=== PATIENT | female | born 1990 | race Two or more races ===

== ENCOUNTER 2017-12-21 06:09 | Emergency (ER) | payer SELFPAY ==
[~2017-12-21] VITALS: Ht 162.6 cm; Wt 57.2 kg
[2017-12-21 06:14] VITALS: BP 126/61; Ht 162.6 cm; Wt 57.2 kg
== END 2017-12-21 06:54 | disposition home or self-care (01) ==
LOC: ED 06:09
DX: H92.22 Otorrhagia, left ear (principal); R51 Headache

== ENCOUNTER 2018-07-01 09:03 | Emergency (ER) | payer OTHER ==
[~2018-07-01] VITALS: Ht 160 cm; Wt 59.4 kg
[2018-07-01 09:22] VITALS: Ht 160 cm; Wt 59.4 kg
[2018-07-01 10:10] VITALS: BP 134/82
[2018-07-01 10:13] LABS: BASOPHIL % 0.4 % (0-2); PLATELET COUNT 392 x10^3mcL (130-400); RED CELL DISTRIBUTION WIDTH 13.2 % (11.5-14.5)
[2018-07-01 10:23] LABS: CALCIUM 9.5 mg/dL (8.5-10.1); CARBON DIOXIDE 22.2 mmol/L (21-32); CHLORIDE SERUM 104 mmol/L (98-107); CREATININE SERUM 0.7 mg/dL (0.6-1.0); GFR1 > 60 mL/min; GLUCOSE SERUM 113 mg/dL (74-106); POTASSIUM SERUM 4.1 mmol/L (3.5-5.1); SODIUM SERUM 140 mmol/L (136-145)
[2018-07-01 10:27] LABS: ALBUMIN 4.4 g/dL (3.4-5.0); ALKALINE PHOSPHATASE 76 U/L (46-116); ALT/SGPT 40 U/L (14-59); AMYLASE 49 U/L (25-115); AST/SGOT 24 U/L (15-37); BILIRUBIN TOTAL 1.51 mg/dL (0.20-1.00); LIPASE 111 IU/L (73-393)
[2018-07-01 10:28] LABS: TOTAL PROTEIN, SERUM 8.4 g/dL (6.4-8.2)
== END 2018-07-01 10:30 | disposition home or self-care (01) ==
LOC: ED 09:03
PROVIDERS: Emergency Medicine
DX: K52.9 Noninfective gastroenteritis and colitis, unspecified (principal); Z88.5 Allergy status to narcotic agent; Z98.890 Other specified postprocedural states
CPT/HCPCS: J1885; J2405; J7030

== ENCOUNTER 2018-11-19 00:02 | Inpatient (IN) | payer OTHER ==
[~2018-11-19] VITALS: Ht 162.6 cm; Wt 60.0 kg
--- NOTE | 2018-11-19 00:26 | NUR ---
PT CAME TO ED CO RIGHT LOWER ABD PAIN. PT STS THE PAIN STARTED THIS MORNING, BUT INCREASED PRIOR TO ARRIVAL. SLIGHT PAIN UPON PALATION IN RIGHT LOWER QUADRANT, NO PAIN IN OTHER QUADRANTS. BOWEL SOUNDS ACTIVE IN ALL FOUR QUADRANTS. BOYFRIEND AT BEDSIDE. NO S/S OF DISTRESS. RESP E/U. AWAITING MSE. WILL CONTINUE TO MONITOR.
--- NOTE | 2018-11-19 00:52 | NUR ---
PT MEDICATED PER ORDER. PT VERBALIZED UNDERSTANDING OF MEDICATION TEACHING. SEE EMAR FOR DETAILS.
[2018-11-19 00:58] LABS: microscopic required? NO
[2018-11-19 01:07] LABS: urine erythrocyte NEGATIVE (NEGATIVE)
[2018-11-19 01:35] LABS: BASOPHIL % 0.1 % (0-2); PLATELET COUNT 345 x10^3mcL (130-400); RED CELL DISTRIBUTION WIDTH 12.6 % (11.5-14.5)
--- NOTE | 2018-11-19 02:00 | NUR ---
PT TAKEN OFF THE FLOOR TO CT VIA [place]. PT IN NO DISTRESS, RESP E/U.
--- NOTE | 2018-11-19 02:07 | NUR ---
PT RETURN[place].
--- NOTE | 2018-11-19 02:18 | NUR ---
PT LAYING ON GURNEY IN POSITION OF COMFORT. PT STS HER PAIN IS RELIEVED WHEN IN SITTING POSITION. BOY FRIEND AT [facility]. WILL CONTINUE TO MONITOR.
[2018-11-19 02:22] LABS: ALBUMIN 4.1 g/dL (3.4-5.0); ALKALINE PHOSPHATASE 77 U/L (46-116); AST/SGOT 13 U/L (15-37); CALCIUM 9.2 mg/dL (8.5-10.1); CHLORIDE SERUM 102 mmol/L (98-107); CREATININE SERUM 0.8 mg/dL (0.6-1.0); GFR1 > 60 mL/min; GLUCOSE SERUM 103 mg/dL (74-106); LIPASE 62 IU/L (73-393); SODIUM SERUM 137 mmol/L (136-145); TOTAL PROTEIN, SERUM 7.5 g/dL (6.4-8.2)
[2018-11-19 02:55] LABS: ALT/SGPT 22 U/L (14-59)
--- NOTE | 2018-11-19 03:25 | NUR ---
PT MEDICATED PER ORDER. PT VERBALIZED UNDERSTANDING OF MEDICATION TEACHING. SEE EMAR FOR DETAILS.
--- NOTE | 2018-11-19 03:40 | NUR ---
REPORT GIVEN TO YAZMIN SHARMA TO ASSUME CARE OF PT.
--- NOTE | 2018-11-19 04:05 | NUR ---
RECEIVED PT FROM ED, VIA WHEELCHAIR. PT AMBULATORY TO BED WITHOUT ISSUE, STRONG AND STEADY GAIT NOTED. MILD DISTRESS OBSERVED, PT ADMITS TO RLQ ABD PAIN WITH MOVEMENT, ONCE LAYING IN BED, DENIES PAIN AND REFUSED PAIN MED AT THIS TIME. ABD SOFT AND FLAT WITH ACTIVE BOWEL SOUNDS, DENIES N/V AT THIS TIME. LAST BM YESTERDAY, REGULAR AND FORMED. AA/OX4, ABLE TO MAKE NEEDS KNOWN. MED-SURG, NO TELE, NO CP. PULSES PRESENT AND EQUAL THROUGHOUT, NO EDEMA. BREATHING ON RA, EVEN AND UNLABORED, NO SOB OR DYSPNEA, LUNGS CTA, O2 SAT 99% VOIDS URINE FREELY WITH BRP. AMBULATORY AND ABLE TO REPOSITION SELF IN BED. SKIN CDI. IV TO LAC IN PLACE, DRY, PATENT, INTACT, NO PAIN, REDNESS OR SWELLING NOTED. IVF FROM ED CONTINUED, NS AT 150 ML/HR AND FIRST BAG OF K RIDER, 20 MEQ, INFUSING WELL. PT MADE AWARE FOR NEED TO BE NPO AT THIS TIME FOR POSSIBLE SURGERY LATER TODAY, PT AGREED AND VERBALIZED UNDERSTANDING. ORIENTED PT TO ROOM AND CALL LIGHT. COMFORT AND SAFETY PRECAUTIONS INITIATED. CALL LIGHT WITHIN REACH. WILL CONTINUE TO MONITOR
--- NOTE | 2018-11-19 04:09 | NUR ---
PT ADMITTED OT MED SURG FLOOR. PT TRANSPORTED TO FLOOR BY EMT. NO S/S OF DISTRESS. RESP E/U. RN AWARE OF MEDICATIONS STILL INFUSING ON TRANSFER. IV SITE PATENT. PT DENIES PAIN OR DISCOMFORT. NO S/S OF INFILTRATION.
[2018-11-19 04:11] LABS: CHOLESTEROL/HDL RATIO 2.6; PHOSPHOROUS 2.3 mg/dL (2.5-4.9)
[2018-11-19 04:23] VITALS: BP 122/66
--- NOTE | 2018-11-19 06:20 | NUR ---
OBTAINED CONSENT FOR LAP APPY, POSSIBLE OPEN. PT SIGNED AND CONSENT PLACED IN CHART. CHECKLIST INITIATED. CONSENT FOR ANESTHESIA SIGNED AND PLACED IN CHART. ALL QUESTIONS AND CONCERNS ADDRESSED. PT STATES NPO SINCE 1500 YESTERDAY 11/18/18. NO OTHER SIGNIFICANT CHANGES TO REPORT. PT COMPLIED WITH NURSING CARE THROUGHOUT THE SHIFT WITH NO ACUTE EVENTS OVERNIGHT. COMFORT AND SAFETY MEASURES MAINTAINED. ALL NEEDS ASSESSED AND ATTENDED TO. CALL LIGHT WITHIN REACH. WILL CONTINUE TO MONITOR AND ENDORSE CARE TO DAY SHIFT NURSE
--- NOTE | 2018-11-19 07:23 | NUR ---
REPORT GIVEN TO YAZMIN SARKAR. ALL QUESTIONS AND CONCERNS ADDRESSED. CHG WIPES DONE. PT S/L. CHECKLIST DONE.
--- NOTE | 2018-11-19 07:25 | NUR ---
PATIENT WENT DOWN TO OR VIA GURNEY. REPORT GIVEN TO OR NURSE BY YAZMIN SHARMA. WILL F/U WITH OR.
--- NOTE | 2018-11-19 07:35 | NUR ---
PATIENT RESTING IN BED, NO ACUTE DISTRESS NOTED. PATIENT C/O ABDOMINAL DISCOMFORT, BUT TOLERABLE. NO RESP. DISTRESS NOTE, PATIENT ON ROOM AIR. PATIENT IS AMBULATORY WITH NO ASSIT. EDUCATED PATIENT ON PAIN MANAGEMENT. NS IV INFUSING TO LAC AT 100ML/HR, NO S/S OF INFILTRATION. CALL LIGHT WITHIN REACH, BED IN LOW POSITION. WILL CONTINUE TO MONITOR FOR CHANGES.
--- NOTE | 2018-11-19 09:35 | NUR ---
PATIENT ARRIVED FROM OR. VITAL SIGN STABLE; BP:129/74 HR:74 RR:19 TEMP.:97.2 PULSE OX: 99% ROOM AIR. PATIENT C/O PAIN UPON TRANSFER TO BED. NO ACUTE CHANGES NOTED. WILL CONTINUE TO MONITOR AND MANAGE PAIN.
[2018-11-19 16:43] VITALS: BP 101/64
--- NOTE | 2018-11-19 19:00 | NUR ---
PATIENT RESTING IN BED, NO ACUTE CHANGES NOTED THROUGHT SHIFT. PATIENT IS STABLE. DERMABOND X3 CDI, NO ERYTHEMA NOTED TO SITES. PATIENT STATES SHES HAS MILD ABDOMINAL PAIN, BUT IS TOLERABLE. NSS IV INFUSING TO LAC AT 100ML/HR, NO S/S OF INFILTRATION. CALL LIGHT WITHIN REACH, BED IN LOW POSITION, ENDORSED REPORT TO YAZMIN ZAMAN.
--- NOTE | 2018-11-19 20:10 | NUR ---
RECEIVED PATIENT IN BED WATCHING TELEVISION WITH NO C/O POST OPERATIVE PAIN AT THIS TIME. INCISION WITH X3 DERMABOND CDI. IV TO LAC INTACT AND INFUSING WELL WITH NO SIGN OF REDNESS AND NO SWELLING NOTED. WILL CONTINUE TO MONITOR. CALL LIGHT WITHIN REACH.
--- NOTE | 2018-11-19 20:29 | NUR ---
C/O POST OPERATIVE PAIN AT SCALE OF 8/10 PER PATIENT, MEDICATED WITH NORCO 1 TAB PO PRESCRIBED. WILL CONTINUE TO MONITOR.
[2018-11-19 21:07] VITALS: BP 101/53
--- NOTE | 2018-11-19 23:52 | NUR ---
RELIEF NOTED PER PATIENT AFTER PAIN MEDS WAS GIVEN. WILL CONTINUE TO MONITOR.
--- NOTE | 2018-11-20 00:51 | NUR ---
SLLEPING THIS TIME BREATHING EASYA ND NONLABOR. WILL CONTINUE TO MONITOR.
[2018-11-20 02:23] LABS: AMPHETAMINE QUAL UR NONE DETECTED (See below)
--- NOTE | 2018-11-20 05:14 | NUR ---
SLEPT FAIRLY C/O POST OPERATIVE PAIN X2 THE ENTIRE SHIFT AND MEDICATED PRESCRIBED. ALL NEEDS ATTENDED.
[2018-11-20 05:34] VITALS: BP 107/60
[2018-11-20 06:30] LABS: BASOPHIL % 0.3 % (0-2); PLATELET COUNT 317 x10^3mcL (130-400); RED CELL DISTRIBUTION WIDTH 12.7 % (11.5-14.5)
[2018-11-20 06:41] LABS: CALCIUM 8.8 mg/dL (8.5-10.1); CARBON DIOXIDE 25.3 mmol/L (21-32); CHLORIDE SERUM 106 mmol/L (98-107); CREATININE SERUM 0.7 mg/dL (0.6-1.0); GFR1 > 60 mL/min; GLUCOSE SERUM 92 mg/dL (74-106); MAGNESIUM 1.9 mg/dL (1.8-2.4); PHOSPHOROUS 3.3 mg/dL (2.5-4.9); POTASSIUM SERUM 3.6 mmol/L (3.5-5.1); SODIUM SERUM 139 mmol/L (136-145)
--- NOTE | 2018-11-20 07:20 | NUR ---
RECEIVED PT FROM ENTRY LEVEL ACCOUNT EXECUTIVE. PT AWAKE, ALERT. A/OX4. PT ON ROOM AIR WITH NO RESP DISTRESS NOTED. IV ACCESS LAC, CDI INFUSING NS AT 100ML/HR. PERIPHERAL PULSES PALPABLE, NO EDEMA NOTED. HYPOACTIVE BOWEL SOUNDS NOTED. PT S/P LAP APPY WITH DERMABOND X3 TO ABDOMEN. PT COMPLAINS OF PAIN 6/10 AT THIS TIME. WILL MEDICATE PRN. PT DENIES PASSING GAS, NO BM. PT AMBULATORY. SAFETY MEASURES IN PLACE, BED LOW AND LOCKED. CALL LIGHT WITHIN REACH.
[2018-11-20 09:36] VITALS: BP 103/72
--- NOTE | 2018-11-20 10:02 | NUR ---
PT COMPLAINING OF PAIN TO ABDOMEN 11/17. NORCO ADMINISTERED ORDERED PRN. PT STATES PAIN IS INTERMITTANT. WILL CONTINUE TO MONITOR.
--- NOTE | 2018-11-20 11:06 | NUR ---
PT REPORTS PAIN IS "WAY BETTER". PAIN 5/10 AT THIS TIME. PT SITTING IN BED ON CELL PHONE AT THIS TIME WITH NO ACUTE DISTRESS NOTED.
--- NOTE | 2018-11-20 12:00 | NUR ---
DUE ANTIBIOTIC ADMINISTERED ORDERED. PT IN NO ACUTE DISTRESS AT THIS TIME. WILL CONT TO MONITOR.
--- NOTE | 2018-11-20 15:23 | NUR ---
PT SITTING IN BED WITH FAMILY AT BEDSIDE. PT REPORTS HAVING BOWEL MOVEMENT AND GAS. PT DENIES PAIN AT THIS TIME. NO ACUTE DISTRESS NOTED. SAFETY MAINTAINED.
--- NOTE | 2018-11-20 18:32 | NUR ---
PT REPORTS RELIEF AFTER MED ADMINISTRATION. PT REQUESTING TO TAKE SHOWER, PER POONAM TRIMBLE CREEL CLERK. PT MAY NOT HAVE SHOWER PRIVILEGES AT THIS TIME. PT EDUCATION PROVIDED. PT VERBALIZED UNDERSTANDING. ALL NEEDS TENDED TO THROUGHOUT SHIFT. PT STABLE AT THIS TIME. WILL CONTINUE TO MONITOR AND ENDORSE CARE TO [employer] DEVELOPER.
[2018-11-20 18:52] VITALS: BP 116/70
--- NOTE | 2018-11-20 19:35 | NUR ---
RECEIVED PT FROM DAY SHIFT RN. PT IS ALERT AND ORIENTED TO PERSON PLACE TIME AND SITUATION. CURRENTLY RESTING IN BED AND ABLE TO FOLLOW COMMANDS. THERE ARE NO SIGNS OR SYMPTOMS OF DISTRESS NOTED. PT DENIES CHEST PAIN OR SHORTNESS OF BREATH AT THIS TIME ON ROOM AIR. PT IS S/P APPENDECTOMY. DENIES ABD PAIN AT THIS TIME. PER PT SHE HAS PASSED GAS, HAD A BOWEL MOVEMENT AND HAS BURPED. PT IS AMBULATORY W/O ASSIST. THERE IS A LAC IV 20G THAT IS CLEAN DRY AND SALINE LOCKED AT THIS TIME. PT DNIES PAIN OVERALL AND STATES THAT SHE IS DOING "OK" SAFETY MEASURES ARE IN PLACE. BED IS IN THE LOWEST POSITION, CALL LIGHT IS WITHIN REACH. WILL CONTINUE TO MONITOR PT.
[2018-11-20 21:31] VITALS: BP 114/57
--- NOTE | 2018-11-21 02:31 | NUR ---
PT WATCHING TV IN BED. OFFERED TO WALK WITH PT IN ORDER TO PROMOTE PERISTALSIS AND DECREASE ABD PAIN. PT STATED SHE WOULD CALL. PAIN TOLERABLE AT THIS TIME. WILL CONTINUE TO MONITOR.
[2018-11-21 05:28] VITALS: BP 108/71
[2018-11-21 06:14] LABS: BASOPHIL % 0.6 % (0-2); PLATELET COUNT 370 x10^3mcL (130-400); RED CELL DISTRIBUTION WIDTH 13.1 % (11.5-14.5)
[2018-11-21 06:27] LABS: CALCIUM 9.6 mg/dL (8.5-10.1); CHLORIDE SERUM 104 mmol/L (98-107); CREATININE SERUM 0.7 mg/dL (0.6-1.0); GFR1 > 60 mL/min; GLUCOSE SERUM 80 mg/dL (74-106); POTASSIUM SERUM 3.9 mmol/L (3.5-5.1); SODIUM SERUM 141 mmol/L (136-145)
[2018-11-21 08:58] VITALS: BP 115/61
[2018-11-21] MEDS ORDERED: TOR10 PO (09:46)
[2018-11-21 10:08] VITALS: BP 115/61
--- NOTE | 2018-11-21 11:41 | NUR ---
DISCHARGE INSTRUCTIONS GIVEN AND EXPLAINED TO PATIENT AND . PACKET AND PRESCRIPTION GIVEN. ALL QUESTIONS ADDRESSED. PHOTOGRAPH TAKEN OF SURGICAL INCISIONS, IV CATHETER REMOVED AND INTACT. PATIENT WITH BELONGINGS ESCORTED DOWNSTAIRS VIA AMBULATION APPCOMPANIED BY AND DEISY GRANT.
== END 2018-11-21 11:49 | disposition home or self-care (01) | DRG 343 ==
LOC: ED 00:02 → MU 03:04
PROVIDERS: Emergency Medicine; Internal Medicine; Surgery; ADMIT Internal Medicine
PROC: 3E0M45Z Introduction of Adhesion Barrier into Peritoneal Cavity, Percutaneous Endoscopic Approach (ICD-10-PCS; 2018-11-19)
PROC: 0DTJ4ZZ Resection of Appendix, Percutaneous Endoscopic Approach (ICD-10-PCS; principal; 2018-11-19 07:30)
DX: K35.80 Unspecified acute appendicitis (principal); E87.6 Hypokalemia; E86.0 Dehydration; E83.39 Other disorders of phosphorus metabolism; Z98.82 Breast implant status; Z68.22 Body mass index [BMI] 22.0-22.9, adult; Z87.820 Personal history of traumatic brain injury
CPT/HCPCS: G0378; J0330; J1170; J1200; J1885; J2250; J2405; J2543; J2704; J3010; J3480; J3490; J7030; J7120; Q0092; Q0163

== ENCOUNTER 2019-04-24 04:49 | Emergency (ER) | payer OTHER ==
[~2019-04-24] VITALS: Ht 162.6 cm; Wt 63.5 kg
[~2019-04-24 04:49] MED LIST: TOR10 PO
[2019-04-24 05:00] VITALS: Ht 162.6 cm; Wt 63.5 kg
[2019-04-24 05:43] LABS: BASOPHIL % 0.4 % (0-2); PLATELET COUNT 355 x10^3mcL (130-400); RED CELL DISTRIBUTION WIDTH 13.2 % (11.5-14.5)
[2019-04-24 05:57] LABS: CALCIUM 8.9 mg/dL (8.5-10.1); CARBON DIOXIDE 24.3 mmol/L (21-32); CHLORIDE SERUM 106 mmol/L (98-107); CREATININE SERUM 0.7 mg/dL (0.6-1.0); GFR1 > 60 mL/min; GLUCOSE SERUM 87 mg/dL (74-106); POTASSIUM SERUM 3.2 mmol/L (3.5-5.1); SODIUM SERUM 143 mmol/L (136-145)
[2019-04-24 06:06] LABS: ALBUMIN 4.1 g/dL (3.4-5.0); ALKALINE PHOSPHATASE 84 U/L (46-116); ALT/SGPT 28 U/L (14-59); AST/SGOT 18 U/L (15-37); BILIRUBIN TOTAL 0.5 mg/dL (0.20-1.00); TOTAL PROTEIN, SERUM 7.7 g/dL (6.4-8.2)
[2019-04-24 07:22] VITALS: BP 115/81
== END 2019-04-24 07:22 | disposition home or self-care (01) ==
LOC: ED 04:49
PROVIDERS: Emergency Medicine
DX: R56.9 Unspecified convulsions (principal); Z98.890 Other specified postprocedural states; Z88.5 Allergy status to narcotic agent
CPT/HCPCS: G0480; J1953; Q0092

== ENCOUNTER 2020-04-30 08:27 | Emergency (ER) | payer OTHER ==
[~2020-04-30] VITALS: Ht 167.6 cm; Wt 63.5 kg
[2020-04-30 08:34] VITALS: Ht 167.6 cm; Wt 63.5 kg
[2020-04-30 09:47] LABS: CALCIUM 9.3 mg/dL (8.5-10.1); CARBON DIOXIDE 26.9 mmol/L (21-32); CHLORIDE SERUM 104 mmol/L (98-107); CREATININE SERUM 0.6 mg/dL (0.6-1.0); GFR1 > 60 mL/min; GLUCOSE SERUM 89 mg/dL (74-106); POTASSIUM SERUM 4.1 mmol/L (3.5-5.1); SODIUM SERUM 142 mmol/L (136-145)
[2020-04-30 09:51] LABS: ALBUMIN 4.6 g/dL (3.4-5.0); ALKALINE PHOSPHATASE 92 U/L (46-116); ALT/SGPT 29 U/L (14-59); AST/SGOT 17 U/L (15-37); BILIRUBIN TOTAL 0.5 mg/dL (0.20-1.00); TOTAL PROTEIN, SERUM 7.8 g/dL (6.4-8.2)
[2020-04-30 09:53] LABS: BASOPHIL % 0.5 % (0.2-1.3); PLATELET COUNT 362 x10^3mcL (179-408); RED CELL DISTRIBUTION WIDTH 12.8 % (12.3-17.7)
[2020-04-30 11:10] LABS: rbc morphology (normal/abnorm) NORMAL (NORMAL)
[2020-04-30] MEDS ORDERED: NORCO 10-325 T1 EACH PO (11:53)
[2020-04-30] MEDS ORDERED: NAPROXEN375 MG PO (11:53)
[2020-04-30] MEDS ORDERED: SOMA350 MG PO (11:53)
[2020-04-30 12:13] VITALS: BP 109/76
== END 2020-04-30 12:13 | disposition home or self-care (01) ==
LOC: ED 08:27
PROVIDERS: Emergency Medicine
DX: M54.5 Low back pain (principal); Z88.5 Allergy status to narcotic agent; Z98.890 Other specified postprocedural states
CPT/HCPCS: J1200; J1885; J2270; J3010; J3490; J7030